=== PATIENT | male | born 1985 ===

== ENCOUNTER 2018-09-27 12:22 | Emergency (ER) | payer OTHER ==
[2018-09-27 12:34] VITALS: BMI 27.4
[2018-09-27 12:40] VITALS: BP 169/115; PULSE 82; RESP 20; TEMP 98.1; O2SAT 100
--- NOTE | 2018-09-27 12:59 | RAD ---
PROCEDURE: Left wrist radiographs HISTORY: injury COMPARISON: None available. FINDINGS: BONES: No acute displaced fracture. JOINTS: No dislocation. SOFT TISSUES: Mild soft tissue swelling. No evidence of radiopaque foreign body OTHER FINDINGS: None. IMPRESSION: Mild soft tissue swelling. No acute displaced fracture or dislocation identified. If symptoms persist, or if there is continued clinical concern, x-ray follow-up in 7-10 days should be considered.
--- NOTE | 2018-09-27 13:23 | C.PDOC ---
History Of Present Illness 33 year old male, with no significant past medical history, presents to the ED for evaluation of left wrist pain which gradually developed after he sustained an injury at work around one month ago. Patient states he tried to catch a box and accidentally bent his left hand and wrist backward. Patient is also complaining of a small lump to his left wrist. He denies any other injuries, wrist swelling, and extremity numbness/weakness. Chief Complaint (Nursing): Upper Extremity Problem/Injury History Per: Patient History/Exam Limitations: no limitations Onset/Duration Of Symptoms: Gradual, Other (one month ) Current Symptoms Are (Timing): Still Present Quality: "Pain" Additional History Per: Patient Past Medical History Reviewed: Historical Data, Nursing Documentation, Vital Signs Vital Signs: Last Vital Signs Temp 98.1 F 09/27/18 12:36 Pulse 82 09/27/18 12:36 Resp 20 09/27/18 12:36 BP 169/115 H 09/27/18 12:36 Pulse Ox 100 09/27/18 12:36 - Medical History PMH: No Chronic Diseases Surgical History: No Surg Hx Family History: States: Unknown Family Hx - Social History Hx Alcohol Use: Yes Hx Substance Use: No - Immunization History Hx Tetanus Toxoid Vaccination: No Hx Influenza Vaccination: No Hx Pneumococcal Vaccination: No Review Of Systems Constitutional: Negative for: Fever, Chills, Weakness Cardiovascular: Negative for: Chest Pain Musculoskeletal: Positive for: Other (left wrist pain ). Negative for: Back Pain Skin: Negative for: Rash Neurological: Negative for: Weakness, Numbness, Dizziness Physical Exam - Physical Exam Appears: Well, Non-toxic, No Acute Distress Skin: Normal Color, Warm, No Rash Head: Atraumatic, Normacephalic Eye(s): bilateral: Normal Inspection Oral Mucosa: Moist Chest: Symmetrical Back: Other (ambulating with steady upright gait) Extremity: Normal ROM (left wrist ), No Tenderness, Capillary Refill (less than 2 seconds ), No Swelling, Other (1cm nodule noted to volar aspect of left wrist, no snuff box tenderness) Pulses: Left Radial: Normal, Right Radial: Normal Neurological/Psych: Oriented x3, Normal Cranial Nerves (grossly intact ) ED Course And Treatment O2 Sat by Pulse Oximetry: 100 (on RA) Pulse Ox Interpretation: Normal - Other Rad left wrist XR X-Ray: Viewed By Me, Read By Radiologist Interpretation: PROCEDURE: Left wrist radiographs. HISTORY: injury. COMPARISON: None available. FINDINGS: BONES: No acute displaced fracture. JOINTS: No dislocation. SOFT TISSUES: Mild soft tissue swelling. No evidence of radiopaque foreign body. OTHER FINDINGS: None. IMPRESSION: Mild soft tissue swelling. No acute displaced fracture or dislocation identified. If symptoms persist, or if there is continued clinical concern, x-ray follow-up in 7-10 days should be considered. Medical Decision Making Medical Decision Making: Progress: Left wrist XR ordered and reviewed. Results are unremarkable. Left wrist is non-tender to palpation with no swelling or deformity. 1cm nodule noted to left wrist is likely indicative of an early ganglion cyst. Splint applied by dish technician and was checked by me. Patient advised to take Motrin for pain relief and follow up with orthopedics for further evaluation. Disposition Counseled Patient/Family Regarding: Diagnosis, Need For Followup - Disposition Referrals: Oumar Yusuf MD [Staff Provider] - Disposition: HOME/ ROUTINE Disposition Time: 13:19 Condition: STABLE Additional Instructions: Wear wrist splint during work hours and while having pain. Take motrin 600- 800mg by mouth 3 times a day as needed for pain. Follow up with orthopedics. 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 - Scribe Statement The provider has reviewed the documentation as recorded by the Scribe (Lorena Hernandez) All medical record entries made by the Scribe were at my direction and personally dictated by me. I have reviewed the chart and agree that the record accurately reflects my personal performance of the history, physical exam, medical decision making, and the department course for this patient. I have also personally directed, reviewed, and agree with the discharge instructions and disposition.
== END 2018-09-27 13:42 | disposition home or self-care (01) ==
LOC: C.ER 12:22
DX: M25.532 Pain in left wrist (principal)